=== PATIENT | female | born 1985 | race Caucasian/White ===

== ENCOUNTER 2024-05-23 11:40 | Inpatient (IN) | payer BC ==
[~2024-05-23] VITALS: Ht 162.6 cm; Wt 97.8 kg
[2024-05-23 19:20] VITALS: BP 124/83; PULSE 62; RESP 14; TEMP 96.2; O2SAT 100
[2024-05-23] MEDS ORDERED: magnesium hydroxide 30ml (MOM) UD suspension PO PRN (19:30)
[2024-05-23] MEDS ORDERED: acetaminophen 325mg tablet PO PRN (19:30)
[2024-05-23] MEDS ORDERED: mag hydrox/Alum hydrox/simeth 30ml oral suspension PO PRN (19:30)
[2024-05-23] MEDS ORDERED: loperamide 2mg capsule PO PRN (19:30)
[2024-05-23] MEDS ORDERED: NO HOME MEDS (19:54)
[2024-05-23] MEDS ORDERED: FLU VACC TS2024-25(6MOS UP)/PF 45 MCG/0.5 ML SYRINGE IMVAC ONE (20:20)
[2024-05-23 20:59] VITALS: RESP 14; O2SAT 100
[2024-05-24 07:30] VITALS: BP 122/79; PULSE 63; RESP 16; TEMP 97.2; O2SAT 95
[2024-05-24 09:08] LABS: CHOL/HDL RATIO 3.8 (0.00-4.99); CHOLESTEROL 155 MG/DL (0-200); HDL CHOLESTEROL 41 MG/DL (35-60); LDL CHOLESTEROL 94 MG/DL (50-100); TRIGLYCERIDES 93 MG/DL (20-135)
[2024-05-24 09:29] LABS: HEMOGLOBIN A1C 5.2 % (4.5-6.2)
[2024-05-24] MEDS: FLU VACC TS2024-25(6MOS UP)/PF 45 MCG/0.5 ML SYRINGE IMVAC ONE (15:24)
[2024-05-24] MEDS ORDERED: ipratropium/albuterol 3ml nebule NEB PRN (17:55)
[2024-05-24 19:00] VITALS: RESP 18; O2SAT 100
[2024-05-24 19:37] VITALS: PULSE 66; RESP 18; O2SAT 98
[2024-05-24] MEDS: sertraline 50mg tablet PO ONE (19:38)
[2024-05-24] MEDS: LORazepam 1 MG tablet PO ONE (19:38)
[2024-05-24 20:00] VITALS: BP 117/76; PULSE 63; RESP 18; TEMP 97.3; O2SAT 100
[2024-05-24] MEDS: traZODone 50mg tablet PO SCH (21:01)
[2024-05-24] MEDS: divalproex sod 250mg ER (24-hour) tablet PO SCH (21:01)
[2024-05-25 07:30] VITALS: BP 111/53; PULSE 67; RESP 16; TEMP 98.6; O2SAT 99
[2024-05-25] MEDS: sertraline 50mg tablet PO SCH (08:03)
[2024-05-25 09:09] VITALS: PULSE 63; RESP 18; O2SAT 99
[2024-05-25 19:00] VITALS: RESP 18; O2SAT 99
[2024-05-25 19:19] VITALS: PULSE 77; RESP 18; O2SAT 98
[2024-05-25] MEDS: LORazepam 0.5 MG tablet PO PRN (19:47)
[2024-05-25 20:00] VITALS: BP 123/63; PULSE 71; RESP 18; TEMP 96.8
[2024-05-26 07:00] VITALS: RESP 16; O2SAT 97
[2024-05-26 08:00] VITALS: BP 115/66; PULSE 71; RESP 16; TEMP 97.7; O2SAT 97
[2024-05-26 19:00] VITALS: RESP 16; O2SAT 97
[2024-05-26 20:00] VITALS: BP 128/55; PULSE 65; RESP 16; TEMP 97.8; O2SAT 97
[2024-05-27 04:38] VITALS: BP 125/55; RESP 16; TEMP 97.8
[2024-05-27 07:00] VITALS: RESP 12; O2SAT 97
[2024-05-27 08:00] VITALS: BP 111/67; PULSE 67; RESP 12; TEMP 98.1; O2SAT 97
[2024-05-27 19:00] VITALS: RESP 16; O2SAT 99
[2024-05-27 19:12] VITALS: BP 117/73; PULSE 77; RESP 16; TEMP 97.8; O2SAT 99
[2024-05-27] MEDS: traZODone 50mg tablet PO SCH (20:18)
[2024-05-27 20:28] VITALS: PULSE 76; RESP 16; O2SAT 96
[2024-05-28 07:30] VITALS: BP 98/66; PULSE 74; RESP 16; TEMP 99.1; O2SAT 96
[2024-05-28 10:37] VITALS: PULSE 92; RESP 16; O2SAT 96
[2024-05-28 19:00] VITALS: BP 116/67; PULSE 65; RESP 16; TEMP 97; O2SAT 95
[2024-05-28 19:58] VITALS: RESP 14; O2SAT 99
[2024-05-28 20:00] VITALS: BP 116/67; PULSE 65; RESP 16; TEMP 97; O2SAT 95
[2024-05-28 20:04] VITALS: RESP 14
[2024-05-29 07:30] VITALS: BP 114/68; PULSE 74; RESP 16; TEMP 97.9; O2SAT 97
[2024-05-29] MEDS: sertraline 50mg tablet PO SCH (09:10)
[2024-05-29 09:37] LABS: BASOPHILS % (AUTO) 0.4 % (0-1); EOSINOPHILS # (AUTO) 0.1 X10'3 (0-0.9); EOSINOPHILS % (AUTO) 0.7 % (0-6); HEMATOCRIT 38.1 % (35.0-45.0); HEMOGLOBIN 12.6 g/dl (12.0-16.0); LYMPHOCYTES # (AUTO) 1.7 X10'3 (1.1-4.8); LYMPHOCYTES % (AUTO) 16.1 % (21-51); MEAN CORPUSCULAR HEMOGLOBIN 27.3 PG (27.0-31.0); MEAN CORPUSCULAR HGB CONC 33.1 g/dL (33.0-36.5); MEAN CORPUSCULAR VOLUME 82.6 FL (78-98); MONOCYTES # (AUTO) 0.9 X10'3 (0-0.9); MONOCYTES % (AUTO) 8.2 % (2-12); NEUTROPHILS # (AUTO) 8.1 X10'3 (1.8-7.7); NEUTROPHILS % (AUTO) 74.6 % (42-75); PLATELET COUNT 311 X10'3 (140-440); RED BLOOD COUNT 4.62 X10'6 (4.20-5.60); RED CELL DISTRIBUTION WIDTH 15.4 % (11.5-14.5); WHITE BLOOD COUNT 10.9 X10'3 (4.5-11.0)
[2024-05-29 10:25] LABS: ALANINE AMINOTRANSFERASE 22 U/L (12-78); ALBUMIN 3.6 G/DL (3.4-5.0); ALBUMIN/GLOBULIN RATIO 1.1 (1.1-1.5); ALKALINE PHOSPHATASE 67 IU/L (46-116); ANION GAP 11 (8-16); ASPARTATE AMINO TRANSFERASE 10 U/L (10-37); BILIRUBIN,TOTAL 0.3 MG/DL (0.1-1.0); BLOOD UREA NITROGEN 11 MG/DL (7-18); BUN/CREATININE RATIO 10.8 (10.0-20.0); CALCIUM 8.6 MG/DL (8.5-10.1); CHLORIDE 103 MMOL/L (99-107); CREATININE 1.02 MG/DL (0.40-0.90); GLUCOSE 140 MG/DL (70-104); SODIUM 138 MMOL/L (135-145); TOTAL CARBON DIOXIDE 24.2 MMOL/L (24-32); TOTAL PROTEIN 6.9 G/DL (6.4-8.2); eCRCL 64 ML/MIN; eGFR 60 ML/MIN
[2024-05-29 19:00] VITALS: BP 120/75; PULSE 64; RESP 16; TEMP 97.6; O2SAT 97
[2024-05-30 07:00] VITALS: BP 103/50; PULSE 70; RESP 16; TEMP 98.9; O2SAT 97
[2024-05-30 08:57] VITALS: PULSE 75; RESP 16; O2SAT 95
[2024-05-30 19:00] VITALS: BP 128/73; PULSE 66; RESP 16; RESP 18; TEMP 98; O2SAT 97
[2024-05-30 22:52] VITALS: BP 128/73; PULSE 66; RESP 18; TEMP 98; O2SAT 97
[2024-05-31 07:00] VITALS: RESP 16; O2SAT 96
[2024-05-31 08:00] VITALS: BP 110/63; PULSE 62; RESP 16; TEMP 98.1; O2SAT 96
[2024-05-31] MEDS: sertraline 50mg tablet PO ONE (11:14)
[2024-05-31 14:08] VITALS: PULSE 65; RESP 16; O2SAT 97
[2024-05-31 19:00] VITALS: RESP 18; O2SAT 98
[2024-05-31 20:00] VITALS: BP 137/74; PULSE 61; RESP 18; TEMP 98.1; O2SAT 98
[2024-05-31] MEDS: divalproex sod 250mg ER (24-hour) tablet PO SCH (21:17)
[2024-05-31 21:41] VITALS: PULSE 74; RESP 16; O2SAT 98
[2024-06-01 07:00] VITALS: RESP 16; O2SAT 97
[2024-06-01 08:00] VITALS: BP 119/62; PULSE 64; RESP 16; TEMP 98.4; O2SAT 97
[2024-06-01] MEDS: sertraline 50mg tablet PO SCH (08:01)
[2024-06-01 09:56] VITALS: PULSE 66; RESP 16; O2SAT 97
[2024-06-01] MEDS: LORazepam 0.5 MG tablet PO PRN (11:16)
[2024-06-01 19:00] VITALS: RESP 18; O2SAT 98
[2024-06-01 20:00] VITALS: BP 136/87; PULSE 61; RESP 18; TEMP 97.7; O2SAT 98
[2024-06-02 07:00] VITALS: RESP 16; O2SAT 98
[2024-06-02 08:00] VITALS: BP 100/68; PULSE 65; RESP 16; TEMP 98.1; O2SAT 98
[2024-06-02 11:30] VITALS: BP 100/68; PULSE 65; RESP 16; TEMP 98.1
[2024-06-02 16:35] VITALS: PULSE 67; RESP 16; O2SAT 98
[2024-06-02 20:00] VITALS: BP 117/69; PULSE 77; RESP 16; TEMP 98.2; O2SAT 97
[2024-06-02 20:50] VITALS: PULSE 66; RESP 16; O2SAT 99
[2024-06-03 07:00] VITALS: RESP 16; O2SAT 98
[2024-06-03 08:00] VITALS: BP 109/61; PULSE 68; RESP 16; TEMP 96; O2SAT 98
[2024-06-03 17:39] VITALS: PULSE 61; RESP 16; O2SAT 99
[2024-06-03 19:01] VITALS: RESP 16
[2024-06-03 20:06] VITALS: BP 114/68; PULSE 66; RESP 18; TEMP 98.1; O2SAT 98
[2024-06-03 20:30] VITALS: PULSE 65; RESP 16; O2SAT 99
[2024-06-04 07:30] VITALS: BP 106/58; PULSE 72; RESP 18; TEMP 98.6; O2SAT 98
[2024-06-04 09:18] VITALS: PULSE 67; RESP 16; O2SAT 98
[2024-06-04 19:00] VITALS: BP 128/84; PULSE 66; RESP 18; TEMP 97.2; O2SAT 98
[2024-06-04 20:08] VITALS: PULSE 74; RESP 16; O2SAT 98
[2024-06-05 07:30] VITALS: BP 106/63; PULSE 68; RESP 16; TEMP 99; O2SAT 98
[2024-06-05 16:13] VITALS: PULSE 76; RESP 16; O2SAT 99
[2024-06-05 18:54] VITALS: RESP 16; O2SAT 97
[2024-06-05 19:01] VITALS: BP 113/64; PULSE 62; RESP 16; TEMP 98.2; O2SAT 97
[2024-06-05 19:59] VITALS: PULSE 62; RESP 17; O2SAT 98
[2024-06-06 07:00] VITALS: BP 108/66; PULSE 62; RESP 62; TEMP 98.5; O2SAT 98
[2024-06-06 08:00] VITALS: RESP 16; O2SAT 98
[2024-06-06] MEDS ORDERED: DIVA250T8 PO (09:38)
[2024-06-06] MEDS ORDERED: TRAZ-251 PO (09:38)
[2024-06-06] MEDS ORDERED: SERT-433 PO (09:38)
[2024-06-06 19:36] VITALS: BP 119/68; PULSE 61; RESP 16; TEMP 98.8; O2SAT 97
[2024-06-07 07:00] VITALS: BP 108/72; PULSE 63; RESP 12; TEMP 98.5; O2SAT 97
[2024-06-07] MEDS: acetaminophen 325mg tablet PO PRN (07:05)
[2024-06-07 17:48] VITALS: PULSE 64; RESP 20; O2SAT 99
[2024-06-07 19:00] VITALS: BP 116/72; PULSE 65; RESP 18; TEMP 98.2; O2SAT 97
[2024-06-07] MEDS: docusate sod 100mg capsule PO SCH (20:02)
[2024-06-08 07:00] VITALS: BP 109/83; PULSE 60; RESP 14; TEMP 97.6; O2SAT 98
[2024-06-08 08:14] VITALS: BP 109/83; PULSE 60; RESP 14; TEMP 97.6; O2SAT 98
[2024-06-08 08:30] VITALS: RESP 16
== END 2024-06-08 09:18 | disposition home or self-care (01) | DRG 885 ==
LOC: ADULT MH 11:40 → UNDOADMIN 11:40 → ADULT MH 19:20
PROVIDERS: ADMIT Psychiatry & Neurology Psychiatry; ATTEND Psychiatry & Neurology Psychiatry
PROC: GZHZZZZ Group Psychotherapy (ICD-10-PCS; principal; 2024-05-24)
PROC: GZ51ZZZ Individual Psychotherapy, Behavioral (ICD-10-PCS; 2024-05-24)
PROC: 3E02340 Introduction of Influenza Vaccine into Muscle, Percutaneous Approach (ICD-10-PCS; 2024-05-27)
DX: F33.9 Major depressive disorder, recurrent, unspecified (principal); Z59.00 Homelessness unspecified; R45.851 Suicidal ideations; F43.10 Post-traumatic stress disorder, unspecified; F17.210 Nicotine dependence, cigarettes, uncomplicated; F41.9 Anxiety disorder, unspecified; F19.10 Other psychoactive substance abuse, uncomplicated; I50.9 Heart failure, unspecified; J45.998 Other asthma; I25.2 Old myocardial infarction; Z91.51 Personal history of suicidal behavior; Z23 Encounter for immunization
CPT/HCPCS: 36415; 80053; 80061; 83036; 84484; 85025; 87081; 90686; 93306; 94760; A6250